=== PATIENT | male | born 1945 | race Caucasian/White ===

== ENCOUNTER → 2017-06-14 | Day surgery (SDC) | payer MEDICARE, OTHER ==
[2017-06-06 12:43] LABS: BASOPHILS # (AUTO) 0.1 (0.0-0.1); BASOPHILS % 0.9 % (0.0-1.0); EOSINOPHILS # (AUTO) 0.2 (0.0-0.4); EOSINOPHILS % 2.6 % (0.0-6.0); HEMATOCRIT 43.8 % (38.2-49.6); HEMOGLOBIN 14.8 g/dL (14.0-18.0); LYMPHOCYTES # (AUTO) 1.1 (1.0-3.2); MEAN CORPUSCULAR HGB CONC 33.8 g/dL (31-35); MEAN CORPUSCULAR VOLUME 94.8 fL (81-99); MONOCYTES # (AUTO) 0.8 (0.2-0.8); MONOCYTES % 9.4 % (4.4-11.3); NEUTROPHILS # (AUTO) 6.4 (2.1-6.9); NEUTROPHILS % 73.6 % (38.7-80.0); PLATELET COUNT 232 x10e3/uL (140-360); RED BLOOD COUNT 4.62 x10e6/uL (4.3-5.7); RED CELL DISTRIBUTION WIDTH 12.9 % (11.7-14.4)
[~2017-06-14] MED LIST: AMLODIPINE BESYL5 MG PO; ASPIRIN81 MG PO; BENZOCAINE/TETRACAINE/BUTAMBEN AERO SPRAY 56 GM CAN ONE; ELLIQUIS PO; FUROSEMIDE40 MG PO; JALYN 0.5-0.41 EACH PO; JALYN PO; KETAMINE HCL INJ 50 MG/ML 10 ML VIAL ONE; LIDOCAINE HCL 2% LOCAL INJ 5 ML SDV VIAL INJ ONE; LIPITOR80 MG PO; LISINOPRIL10 MG PO; LOSARTAN POTASS25 MG PO; MULTIVITAMIN PO; NEXIUM40 MG PO; POTASSIUM CHLO10 ME1 PO; PROPOFOL IV EMULSION 10 MG/ML 50 ML VIAL ONE; RANEXA500 MG PO; REPATHA IM; TOPROL XL25 MG PO; TORSEMIDE10 MG PO; XARELTO10 MG PO; ZETIA10 MG PO; [UNRECOGNIZED DRUG - OTHER] PO; [UNRECOGNIZED DRUG - OTHER] PO
== END | disposition home or self-care (01) ==
LOC: OR 06:48
PROVIDERS: ATTEND Internal Medicine Gastroenterology
DX: Z12.11 Encounter for screening for malignant neoplasm of colon (principal); D12.2 Benign neoplasm of ascending colon; K29.50 Unspecified chronic gastritis without bleeding; K22.2 Esophageal obstruction; K20.9 Esophagitis, unspecified; K44.9 Diaphragmatic hernia without obstruction or gangrene; K64.8 Other hemorrhoids; G47.33 Obstructive sleep apnea (adult) (pediatric); I25.810 Atherosclerosis of coronary artery bypass graft(s) without angina pectoris; I10 Essential (primary) hypertension; E78.5 Hyperlipidemia, unspecified; I48.91 Unspecified atrial fibrillation; I44.7 Left bundle-branch block, unspecified; M19.90 Unspecified osteoarthritis, unspecified site; E66.9 Obesity, unspecified; Z01.810 Encounter for preprocedural cardiovascular examination; Z01.812 Encounter for preprocedural laboratory examination; Z79.82 Long term (current) use of aspirin; Z79.02 Long term (current) use of antithrombotics/antiplatelets; Z68.39 Body mass index [BMI] 39.0-39.9, adult; Z95.1 Presence of aortocoronary bypass graft
CPT/HCPCS: 36415; 43239; 43249; 45385; 85025; 93005; J2001; 43450

== ENCOUNTER → 2018-05-14 | Outpatient (CLI) | payer MEDICARE, OTHER ==
[~2018-05-14] MED LIST changes: -BENZOCAINE/TETRACAINE/BUTAMBEN AERO SPRAY 56 GM CAN ONE; -KETAMINE HCL INJ 50 MG/ML 10 ML VIAL ONE; -LIDOCAINE HCL 2% LOCAL INJ 5 ML SDV VIAL INJ ONE; -PROPOFOL IV EMULSION 10 MG/ML 50 ML VIAL ONE
== END ==
LOC: CARD 13:54
PROVIDERS: ATTEND Family Medicine Adult Medicine
DX: I73.9 Peripheral vascular disease, unspecified (principal); I87.2 Venous insufficiency (chronic) (peripheral)
CPT/HCPCS: 93922; 93925; 93970

== ENCOUNTER → 2018-05-16 | Outpatient (RCR) | payer MEDICARE, OTHER ==
[~2018-05-16] MED LIST changes: +LIDOCAINE/PRILOCAINE 2.5-2.5% KIT ONE
== END ==
LOC: WCC 05-09 12:48
PROVIDERS: ATTEND Family Medicine Adult Medicine
DX: T81.30XA Disruption of wound, unspecified, initial encounter (principal); I83.11 Varicose veins of right lower extremity with inflammation; R60.0 Localized edema; I87.2 Venous insufficiency (chronic) (peripheral); I73.9 Peripheral vascular disease, unspecified; I10 Essential (primary) hypertension; E78.5 Hyperlipidemia, unspecified; I25.810 Atherosclerosis of coronary artery bypass graft(s) without angina pectoris; M13.80 Other specified arthritis, unspecified site; S87.81XA Crushing injury of right lower leg, initial encounter
CPT/HCPCS: 10140

== ENCOUNTER → 2018-06-13 | Outpatient (RCR) | payer MEDICARE, OTHER ==
[~2018-06-13] MED LIST changes: +MINERAL OIL/PETROLAT/GLYCERI 6OZ BTL ONE; +MUPIROCIN 2% OINT 22 GM TUBE ONE
== END ==
LOC: WCC 05-23 11:08
PROVIDERS: ATTEND Family Medicine Adult Medicine
DX: T81.30XA Disruption of wound, unspecified, initial encounter (principal); I83.11 Varicose veins of right lower extremity with inflammation; I87.2 Venous insufficiency (chronic) (peripheral); I73.9 Peripheral vascular disease, unspecified; R60.0 Localized edema; I10 Essential (primary) hypertension; E78.5 Hyperlipidemia, unspecified; I25.810 Atherosclerosis of coronary artery bypass graft(s) without angina pectoris; M13.80 Other specified arthritis, unspecified site; S87.81XA Crushing injury of right lower leg, initial encounter

== ENCOUNTER 2018-07-11 10:34 | Outpatient (RCR) | payer MEDICARE, OTHER ==
[~2018-07-11 10:34] MED LIST changes: +HYDROMORPHONE 2MG/ML 2 MG/ML ML ONE; +MINERAL OIL/PETROLAT/GLYCERI 2OZ CRM ONE
[2018-07-11] MEDS ORDERED: LIDOCAINE/PRILOCAINE 2.5-2.5% KIT ONE (12:55)
[2018-07-11] MEDS ORDERED: MINERAL OIL/PETROLAT/GLYCERI 6OZ BTL ONE (12:55)
== END 2018-07-14 ==
LOC: WCC 10:34
PROVIDERS: ATTEND Family Medicine Adult Medicine
DX: T81.30XA Disruption of wound, unspecified, initial encounter (principal); S60.811A Abrasion of right wrist, initial encounter; S50.812A Abrasion of left forearm, initial encounter; S50.811A Abrasion of right forearm, initial encounter; S90.422A Blister (nonthermal), left great toe, initial encounter; I83.11 Varicose veins of right lower extremity with inflammation; I73.9 Peripheral vascular disease, unspecified; I87.2 Venous insufficiency (chronic) (peripheral); R60.0 Localized edema; S87.81XA Crushing injury of right lower leg, initial encounter; W45.8XXA Other foreign body or object entering through skin, initial encounter; I10 Essential (primary) hypertension; M13.80 Other specified arthritis, unspecified site; I25.810 Atherosclerosis of coronary artery bypass graft(s) without angina pectoris; E78.5 Hyperlipidemia, unspecified
CPT/HCPCS: 11042 ×4; 29581 ×7; 99213 ×5; J1170

== ENCOUNTER 2018-07-25 11:38 | Outpatient (RCR) | payer MEDICARE, OTHER ==
[~2018-07-25 11:38] MED LIST changes: -HYDROMORPHONE 2MG/ML 2 MG/ML ML ONE; +LIDOCAINE VISC 2% SOLN 15 ML UDC ONE; -LIDOCAINE/PRILOCAINE 2.5-2.5% KIT ONE; -MINERAL OIL/PETROLAT/GLYCERI 2OZ CRM ONE; -MUPIROCIN 2% OINT 22 GM TUBE ONE
[2018-07-25] MEDS ORDERED: MINERAL OIL/PETROLAT/GLYCERI 6OZ BTL ONE (18:51)
[2018-07-25] MEDS ORDERED: LIDOCAINE/PRILOCAINE 2.5-2.5% KIT ONE (18:51)
== END 2018-08-13 ==
LOC: WCC 11:38
PROVIDERS: ATTEND Family Medicine Adult Medicine
DX: T81.30XA Disruption of wound, unspecified, initial encounter (principal); I73.9 Peripheral vascular disease, unspecified; S90.422A Blister (nonthermal), left great toe, initial encounter; R60.0 Localized edema; I89.0 Lymphedema, not elsewhere classified; I87.2 Venous insufficiency (chronic) (peripheral); S87.81XA Crushing injury of right lower leg, initial encounter; W45.8XXA Other foreign body or object entering through skin, initial encounter; M13.80 Other specified arthritis, unspecified site; I25.810 Atherosclerosis of coronary artery bypass graft(s) without angina pectoris; I10 Essential (primary) hypertension; E78.5 Hyperlipidemia, unspecified

== ENCOUNTER 2018-08-30 13:37 | Outpatient (RCR) | payer MEDICARE, OTHER ==
[~2018-08-30 13:37] MED LIST changes: -LIDOCAINE VISC 2% SOLN 15 ML UDC ONE; -MINERAL OIL/PETROLAT/GLYCERI 6OZ BTL ONE
== END 2018-09-13 ==
LOC: WCC 13:37
PROVIDERS: ATTEND Family Medicine
DX: R60.9 Edema, unspecified (principal); S87.81XA Crushing injury of right lower leg, initial encounter; Q82.0 Hereditary lymphedema; W45.8XXA Other foreign body or object entering through skin, initial encounter; M13.80 Other specified arthritis, unspecified site; I87.2 Venous insufficiency (chronic) (peripheral); I89.0 Lymphedema, not elsewhere classified; I73.9 Peripheral vascular disease, unspecified; I25.810 Atherosclerosis of coronary artery bypass graft(s) without angina pectoris; I10 Essential (primary) hypertension; E78.5 Hyperlipidemia, unspecified

== ENCOUNTER → 2018-11-25 | Outpatient (CLI) | payer OTHER, MEDICARE | LOC: RAD 13:35 | PROVIDERS: ATTEND Family Medicine | DX: R60.0 Localized edema (principal) | CPT/HCPCS: 93971 ==

== ENCOUNTER 2021-09-06 14:41 | Outpatient (RCR) | payer MEDICARE, OTHER ==
[~2021-09-06 14:41] MED LIST changes: +CIPRO500 MG PO; +DOXYCYCLINE HY100 MG PO; +LIDOCAINE VISC 2% SOLN 15 ML UDC ONE; +MUPIROCIN 2% OINT 22 GM TUBE ONE; +TRAZODONE HCL100 MG PO; +TRIAMCINOLONE ACET 0.1% CREAM 15 GM TUBE ONE
[2021-09-06] MEDS ORDERED: LIDOCAINE VISC 2% SOLN 15 ML UDC ONE (16:37)
[2021-09-06] MEDS ORDERED: MUPIROCIN 2% OINT 22 GM TUBE ONE (16:37)
[2021-09-07] MEDS ORDERED: LOSARTAN POTASS25 MG PO (11:40)
[2021-09-07] MEDS ORDERED: SYMBICORT 16010.2 GM INH (11:40)
[2021-09-07] MEDS ORDERED: METOPROLOL SUCC25 MG PO (11:40)
[2021-09-07] MEDS ORDERED: METOLAZONE5 MG PO (11:40)
[2021-09-15] MEDS ORDERED: HYDROCODON-ACE1 EA11 PO (08:44)
== END 2021-09-13 ==
LOC: WCC 14:41
PROVIDERS: ATTEND Family Medicine Adult Medicine
DX: S51.002A Unspecified open wound of left elbow, initial encounter (principal); S51.801A Unspecified open wound of right forearm, initial encounter; S61.402A Unspecified open wound of left hand, initial encounter; S81.801A Unspecified open wound, right lower leg, initial encounter; I83.11 Varicose veins of right lower extremity with inflammation; I89.0 Lymphedema, not elsewhere classified; I73.9 Peripheral vascular disease, unspecified; R60.0 Localized edema; S80.221A Blister (nonthermal), right knee, initial encounter; I10 Essential (primary) hypertension; I25.810 Atherosclerosis of coronary artery bypass graft(s) without angina pectoris; I48.91 Unspecified atrial fibrillation; E78.5 Hyperlipidemia, unspecified; M13.80 Other specified arthritis, unspecified site; W18.30XA Fall on same level, unspecified, initial encounter; S87.81XA Crushing injury of right lower leg, initial encounter; W45.8XXA Other foreign body or object entering through skin, initial encounter
CPT/HCPCS: 87071; 87075; 87205

== ENCOUNTER 2021-09-06 15:22 | Inpatient (IN) | payer MEDICARE, OTHER ==
[~2021-09-06] VITALS: Ht 182.9 cm; Wt 117.9 kg
[~2021-09-06 15:22] MED LIST changes: -LIDOCAINE VISC 2% SOLN 15 ML UDC ONE; -MUPIROCIN 2% OINT 22 GM TUBE ONE; -TRIAMCINOLONE ACET 0.1% CREAM 15 GM TUBE ONE
[2021-09-06 17:32] LABS: BASOPHILS # (AUTO) 0.1 (0.0-0.1); BASOPHILS % 0.7 % (0.0-1.0); EOSINOPHILS # (AUTO) 0.1 (0.0-0.4); EOSINOPHILS % 1.6 % (0.0-6.0); HEMATOCRIT 36.7 % (38.2-49.6); HEMOGLOBIN 10.5 g/dL (14.0-18.0); LYMPHOCYTES # (AUTO) 0.6 (1.0-3.2); MEAN CORPUSCULAR HEMOGLOBIN 28.8 pg (28-32); MEAN CORPUSCULAR HGB CONC 28.6 g/dL (31-35); MEAN CORPUSCULAR VOLUME 100.5 fL (81-99); MONOCYTES # (AUTO) 0.6 (0.2-0.8); MONOCYTES % 8.1 % (4.4-11.3); NEUTROPHILS % 81.3 % (38.7-80.0); PLATELET COUNT 281 x10e3/uL (140-360); RED BLOOD COUNT 3.65 x10e6/uL (4.3-5.7); RED CELL DISTRIBUTION WIDTH 14.8 % (11.7-14.4)
[2021-09-06 17:49] LABS: ANION GAP 13.9 mmol/L (8-16); CALCIUM 8.3 mg/dL (8.4-10.2); CREATININE, SERUM 1.11 mg/dL (0.72-1.25); POTASSIUM 3.9 mmol/L (3.5-5.1)
[2021-09-06 18:01] LABS: INR 1.04; PARTIAL THROMBOPLASTIN TIME 30.2 seconds (23.8-35.5); PROTHROMBIN TIME 14.5 seconds (11.9-14.5)
[2021-09-06] MEDS ORDERED: TRAMADOL HCL 50 MG TAB PO PRN (19:45)
[2021-09-06] MEDS ORDERED: HYDROCODONE/APAP 5MG-325MG TAB PO PRN (19:45)
[2021-09-06 20:00] VITALS: BP 113/59
[2021-09-06] MEDS ORDERED: SODIUM CHLORIDE 0.9% 100 ML ONE (20:19)
[2021-09-06] MEDS ORDERED: DUTASTERIDE PO SCH (21:00)
[2021-09-06] MEDS ORDERED: MELATONIN 5 MG TABLET PO PRN (21:00)
[2021-09-06] MEDS ORDERED: ATORVASTATIN 40 MG TAB PO SCH (21:00)
[2021-09-06] MEDS ORDERED: DUTASTERIDE 0.5 MG CAP PO SCH (21:00)
[2021-09-06] MEDS ORDERED: TAMSULOSIN HCL PO SCH (21:00)
[2021-09-06] MEDS ORDERED: NON-FORMULARY MEDICATION (Atorvastatin Calcium (Lipitor) 80 MG) PO SCH (21:00)
[2021-09-06] MEDS ORDERED: TAMSULOSIN HCL 0.4 MG CAP PO SCH (21:00)
[2021-09-06] MEDS ORDERED: TRAZODONE HCL 50 MG TAB PO SCH (21:00)
[2021-09-06] MEDS ORDERED: EZETIMIBE 10 MG TAB PO SCH (21:00)
[2021-09-06] MEDS: Clindamycin INJ 300 MG/50 ML 50 ML IV SCH (22:44)
[2021-09-06 23:15] VITALS: BP 113/59
[2021-09-07] VITALS: BP 100/50
[2021-09-07 04:00] VITALS: BP 95/44
[2021-09-07] MEDS: Clindamycin INJ 300 MG/50 ML 50 ML IV SCH (06:27)
[2021-09-07 07:52] VITALS: BP 103/55
[2021-09-07 08:59] VITALS: BP 103/55
[2021-09-07] MEDS ORDERED: RANOLAZINE 500 MG TABSR PO SCH (09:00)
[2021-09-07] MEDS ORDERED: POTASSIUM CHLORIDE 10MEQ EA PO SCH (09:00)
[2021-09-07] MEDS ORDERED: FUROSEMIDE 40 MG TAB PO SCH (09:00)
[2021-09-07] MEDS ORDERED: LOSARTAN POTASSIUM 25 MG TAB PO SCH (09:00)
[2021-09-07 11:19] VITALS: BP 103/49
[2021-09-07] MEDS ORDERED: ENOXAPARIN INJ 80 MG/0.8 ML SYR SC ONE (11:30)
[2021-09-07] MEDS ORDERED: METOPROLOL SUCC25 MG PO (11:40)
[2021-09-07] MEDS ORDERED: SYMBICORT 16010.2 GM INH (11:40)
[2021-09-07] MEDS ORDERED: LOSARTAN POTASS25 MG PO (11:40)
[2021-09-07] MEDS ORDERED: METOLAZONE5 MG PO (11:40)
[2021-09-07 12:07] LABS: BASOPHILS # (AUTO) 0.1 (0.0-0.1); BASOPHILS % 0.9 % (0.0-1.0); EOSINOPHILS # (AUTO) 0.2 (0.0-0.4); EOSINOPHILS % 3.2 % (0.0-6.0); HEMATOCRIT 37.1 % (38.2-49.6); LYMPHOCYTES # (AUTO) 0.4 (1.0-3.2); LYMPHOCYTES % 6.3 % (18.0-39.1); MEAN CORPUSCULAR HEMOGLOBIN 28.7 pg (28-32); MEAN CORPUSCULAR HGB CONC 29.6 g/dL (31-35); MONOCYTES # (AUTO) 0.5 (0.2-0.8); MONOCYTES % 7.1 % (4.4-11.3); NEUTROPHILS # (AUTO) 5.2 (2.1-6.9); NEUTROPHILS % 82.2 % (38.7-80.0); PLATELET COUNT 289 x10e3/uL (140-360); RED BLOOD COUNT 3.83 x10e6/uL (4.3-5.7); RED CELL DISTRIBUTION WIDTH 14.8 % (11.7-14.4)
[2021-09-07 12:15] LABS: MEAN CORPUSCULAR VOLUME 96.9 fL (81-99)
[2021-09-07 12:31] LABS: ANION GAP 11.7 mmol/L (8-16); CALCIUM 8.2 mg/dL (8.4-10.2); POTASSIUM 3.7 mmol/L (3.5-5.1)
[2021-09-07] MEDS ORDERED: CLINDAMYCIN HCL 150 MG CAP PO SCH (14:15)
[2021-09-07 15:25] VITALS: BP 114/51
== END 2021-09-07 16:22 | disposition home or self-care (01) | DRG 920 ==
LOC: ER 17:37 → ERHOLD 18:35 → MED/SURG2 18:43
PROVIDERS: ADMIT Family Medicine; ATTEND Family Medicine
DX: T81.30XA Disruption of wound, unspecified, initial encounter (principal); I48.20 Chronic atrial fibrillation, unspecified; L03.115 Cellulitis of right lower limb; S70.11XA Contusion of right thigh, initial encounter; I11.0 Hypertensive heart disease with heart failure; I50.9 Heart failure, unspecified; E78.5 Hyperlipidemia, unspecified; I25.10 Atherosclerotic heart disease of native coronary artery without angina pectoris; Z95.810 Presence of automatic (implantable) cardiac defibrillator; Z95.1 Presence of aortocoronary bypass graft; Z95.2 Presence of prosthetic heart valve; Z82.49 Family history of ischemic heart disease and other diseases of the circulatory system; Z20.822 Contact with and (suspected) exposure to COVID-19
CPT/HCPCS: 36415; 80048; 85025; 85610; 85730; 86850; 86900; 99251; 99284; J0692; J1650; J7050; U0002

== ENCOUNTER → 2021-09-15 | Day surgery (SDC) | payer MEDICARE, OTHER ==
[~2021-09-15] MED LIST changes: +FENTANYL CITRATE/PF 100MCG/2 ML INJ ONE; +HYDROCODON-ACE1 EA11 PO; +LIDOCAINE 1% W/EPINEPHRINE 20 ML VIAL ONE; +METOLAZONE5 MG PO; +METOPROLOL SUCC25 MG PO; +MIDAZOLAM HCL 2 MG/2 ML VIAL ONE; +SYMBICORT 16010.2 GM INH
[2021-09-15 09:25] VITALS: BP 103/68
== END | disposition home or self-care (01) ==
LOC: OR 07:14
PROVIDERS: ATTEND Plastic Surgery
DX: I96 Gangrene, not elsewhere classified (principal); G47.33 Obstructive sleep apnea (adult) (pediatric); I25.810 Atherosclerosis of coronary artery bypass graft(s) without angina pectoris; I10 Essential (primary) hypertension; N28.9 Disorder of kidney and ureter, unspecified; Z01.810 Encounter for preprocedural cardiovascular examination; Z01.812 Encounter for preprocedural laboratory examination; Z20.822 Contact with and (suspected) exposure to COVID-19; Z79.02 Long term (current) use of antithrombotics/antiplatelets; Z79.899 Other long term (current) drug therapy; Z95.810 Presence of automatic (implantable) cardiac defibrillator; Z95.2 Presence of prosthetic heart valve
CPT/HCPCS: 11042; 11045 ×12; 71046; 93005; 97606; 99251; J0690; J2250; J3010; U0002

== ENCOUNTER → 2021-09-29 | Day surgery (SDC) | payer MEDICARE, OTHER ==
[~2021-09-29] MED LIST changes: +AMIODARONE HCL200 MG PO; +ANIMAL CHEWS1 EACH; +DEXAMETHASONE SOD PHOS INJ 4 MG/ML SDV ONE; +EPHEDRINE SULFATE INJ 50 MG/ML VIAL ONE; +ETOMIDATE 2 MG/ML 10 ML INJ IV ONE; -LIDOCAINE 1% W/EPINEPHRINE 20 ML VIAL ONE; +LIDOCAINE HCL 2% LOCAL INJ 5 ML SDV VIAL INJ ONE; -MIDAZOLAM HCL 2 MG/2 ML VIAL ONE; +MINERAL OIL STERILE 10ML VIAL ONE; +MUPIROCIN 2% OINT 22 GM TUBE ONE; +POVIDONE IODINE 0.05% 0.05 % ML PO ONE; +SEVOFLURANE INHAL SOLN 250 ML PEN BTL ONE
[2021-09-29 10:05] VITALS: BP 115/67
== END | disposition home or self-care (01) ==
LOC: OR 06:31
PROVIDERS: ATTEND Plastic Surgery
DX: S71.101A Unspecified open wound, right thigh, initial encounter (principal); G47.33 Obstructive sleep apnea (adult) (pediatric); I10 Essential (primary) hypertension; I25.810 Atherosclerosis of coronary artery bypass graft(s) without angina pectoris; X58.XXXA Exposure to other specified factors, initial encounter; Z01.812 Encounter for preprocedural laboratory examination; Z20.822 Contact with and (suspected) exposure to COVID-19; Z79.899 Other long term (current) drug therapy; Z95.1 Presence of aortocoronary bypass graft; Z95.2 Presence of prosthetic heart valve; Z95.0 Presence of cardiac pacemaker
CPT/HCPCS: 15002; 15003; 15100; 15101; 97605; 99251; J0690; J1100; J2001; J3010; U0002

== ENCOUNTER 2021-10-10 14:24 | Outpatient (RCR) | payer MEDICARE, OTHER ==
[~2021-10-10 14:24] MED LIST changes: -DEXAMETHASONE SOD PHOS INJ 4 MG/ML SDV ONE; -EPHEDRINE SULFATE INJ 50 MG/ML VIAL ONE; -ETOMIDATE 2 MG/ML 10 ML INJ IV ONE; -FENTANYL CITRATE/PF 100MCG/2 ML INJ ONE; +LIDOCAINE 1% W/EPINEPHRINE 20 ML VIAL ONE; -LIDOCAINE HCL 2% LOCAL INJ 5 ML SDV VIAL INJ ONE; +LIDOCAINE VISC 2% SOLN 15 ML UDC ONE; -POVIDONE IODINE 0.05% 0.05 % ML PO ONE; -SEVOFLURANE INHAL SOLN 250 ML PEN BTL ONE
== END 2021-10-13 ==
LOC: WCC 14:24
PROVIDERS: ATTEND Plastic Surgery
DX: T81.89XA Other complications of procedures, not elsewhere classified, initial encounter (principal); S71.101A Unspecified open wound, right thigh, initial encounter; R60.0 Localized edema; I89.0 Lymphedema, not elsewhere classified; I73.9 Peripheral vascular disease, unspecified; I83.11 Varicose veins of right lower extremity with inflammation; E78.5 Hyperlipidemia, unspecified; I10 Essential (primary) hypertension; I25.810 Atherosclerosis of coronary artery bypass graft(s) without angina pectoris; I48.91 Unspecified atrial fibrillation; M13.80 Other specified arthritis, unspecified site; S87.81XA Crushing injury of right lower leg, initial encounter; W18.30XA Fall on same level, unspecified, initial encounter; W45.8XXA Other foreign body or object entering through skin, initial encounter

== ENCOUNTER 2021-10-24 14:42 | Outpatient (RCR) | payer MEDICARE, OTHER ==
[~2021-10-24 14:42] MED LIST changes: -LIDOCAINE 1% W/EPINEPHRINE 20 ML VIAL ONE; -LIDOCAINE VISC 2% SOLN 15 ML UDC ONE; -MINERAL OIL STERILE 10ML VIAL ONE
[2021-10-24] MEDS ORDERED: MINERAL OIL/PETROLAT/GLYCERI 6OZ BTL ONE (14:54)
== END 2021-11-13 ==
LOC: WCC 14:42
PROVIDERS: ATTEND Plastic Surgery
DX: T81.89XA Other complications of procedures, not elsewhere classified, initial encounter (principal); T86.828 Other complications of skin graft (allograft) (autograft); Y83.8 Other surgical procedures as the cause of abnormal reaction of the patient, or of later complication, without mention of misadventure at the time of the procedure; I87.2 Venous insufficiency (chronic) (peripheral); I89.0 Lymphedema, not elsewhere classified; R60.0 Localized edema; I73.9 Peripheral vascular disease, unspecified; I25.810 Atherosclerosis of coronary artery bypass graft(s) without angina pectoris; I10 Essential (primary) hypertension; I48.91 Unspecified atrial fibrillation; E78.5 Hyperlipidemia, unspecified; M13.80 Other specified arthritis, unspecified site; W45.8XXA Other foreign body or object entering through skin, initial encounter; S87.81XA Crushing injury of right lower leg, initial encounter; W18.30XA Fall on same level, unspecified, initial encounter

== ENCOUNTER 2021-12-09 10:51 | Outpatient (RCR) | payer MEDICARE, OTHER ==
[~2021-12-09 10:51] MED LIST changes: -MUPIROCIN 2% OINT 22 GM TUBE ONE
== END 2021-12-14 ==
LOC: PT 10:51
PROVIDERS: ATTEND Family Medicine
DX: I96 Gangrene, not elsewhere classified (principal); M62.81 Muscle weakness (generalized); M25.651 Stiffness of right hip, not elsewhere classified; R26.2 Difficulty in walking, not elsewhere classified

== ENCOUNTER 2022-02-03 10:45 | Outpatient (RCR) | payer MEDICARE, OTHER | END 2022-02-13 | LOC: PT 10:45 | PROVIDERS: ATTEND Family Medicine | DX: I96 Gangrene, not elsewhere classified (principal); M62.81 Muscle weakness (generalized); M25.651 Stiffness of right hip, not elsewhere classified; R26.2 Difficulty in walking, not elsewhere classified ==